=== PATIENT | female | born 1955 | race Caucasian/White ===

== ENCOUNTER 2019-12-06 11:05 | Outpatient (CLI) | payer BC ==
--- NOTE | 2019-12-26 14:34 | MMO ---
Bilateral MAMMO Bilat Screen [facility]. CLINICAL HISTORY: Patient is 64 years old and is seen for screening. The patient has no family history of breast cancer. The patient has no personal history of cancer. The patient has a history of right Stereotatic Biopsy more than 10 years ago - benign. VIEWS: The views performed were: bilateral craniocaudal with tomosynthesis and bilateral mediolateral oblique with tomosynthesis. FILMS COMPARED: The present examination has been compared to prior imaging studies performed at [facility] on 11/27/2015, 12/02/2016 and 12/13/2017. This study has been interpreted with the assistance of computer-aided detection. MAMMOGRAM FINDINGS: The breasts are heterogeneously dense, which could obscure a lesion on mammography. There are stable calcifications with grouped or clustered distribution and associated biopsy clip seen in the right breast. There are no suspicious masses, suspicious calcifications, or new areas of architectural distortion. IMPRESSION: THERE IS NO MAMMOGRAPHIC EVIDENCE OF MALIGNANCY. A ROUTINE FOLLOW-UP MAMMOGRAM IN 1 YEAR IS RECOMMENDED. THE RESULTS OF THIS EXAM WERE SENT TO THE PATIENT. ACR BI-RADS Category 2 - Benign finding MAMMOGRAPHY NOTE: 1. A negative mammogram report should not delay a biopsy if a dominant of clinically suspicious mass is present. 2. Approximately 10% to 15% of breast cancers are not detected by mammography. 3. Adenosis and dense breasts may obscure an underlying neoplasm. Reported by: NEVILLE ERIC MD Electonically Signed: [id number]
== END 2019-12-06 11:06 | disposition home or self-care (01) ==
LOC: BICMAMMO 11:05
PROVIDERS: ATTEND Obstetrics & Gynecology
DX: Z12.31 Encounter for screening mammogram for malignant neoplasm of breast (principal); Z91.89 Other specified personal risk factors, not elsewhere classified
CPT/HCPCS: 77063; 77067

== ENCOUNTER 2020-01-08 10:34 | Outpatient (CLI) | payer BC ==
--- NOTE | 2020-01-08 11:52 | BD ---
EXAM: Bone densitometry using DEXA HISTORY: 64 yo female. Screening for postmenopausal osteoporosis FINDINGS: L1--bone mineral density 0.843 g/sq cm; T score -1.3 ; Z score 0.1 L2--bone mineral density 0.82 g/sq cm; T score -1.8 ; Z score -0.1 L3--bone mineral density 0.816 g/sq cm; T score -2.4 ; Z score -0.7 L4--bone mineral density 0.825 g/sq cm; T score -2.1 ; Z score -0.4 Total L1-L4--bone mineral density 0.829 g/sq cm; T score -2.0 ; Z score -0.3 Left femoral neck--bone mineral density0.514; T score -3.0 ; Z score -1.6 Total proximal left femur--bone mineral density 0.758; T score -1.5 ; Z score -0.4 IMPRESSION: Osteoporosis
== END 2020-01-08 10:35 | disposition home or self-care (01) ==
LOC: BICMAMMO 10:34
PROVIDERS: ATTEND Obstetrics & Gynecology
DX: Z13.820 Encounter for screening for osteoporosis (principal); M81.0 Age-related osteoporosis without current pathological fracture
CPT/HCPCS: 77080

== ENCOUNTER 2021-03-03 13:57 | Outpatient (CLI) | payer BC | END 2021-03-03 13:58 | disposition home or self-care (01) | LOC: BICMAMMO 13:57 | PROVIDERS: ATTEND Obstetrics & Gynecology | DX: Z12.31 Encounter for screening mammogram for malignant neoplasm of breast (principal); Z91.89 Other specified personal risk factors, not elsewhere classified | CPT/HCPCS: 77063; 77067 ==

== ENCOUNTER 2021-08-06 13:26 | Outpatient (CLI) | payer MEDICARE, OTHER | END 2021-08-06 13:27 | disposition home or self-care (01) | LOC: BICRAD 13:26 | PROVIDERS: ATTEND Chiropractor | DX: M54.2 Cervicalgia (principal); M47.812 Spondylosis without myelopathy or radiculopathy, cervical region | CPT/HCPCS: 72040 ==

== ENCOUNTER 2021-08-26 15:41 | Emergency (ER) | payer MEDICARE, OTHER ==
[~2021-08-26 15:41] MED LIST: ISOVUE-370 76%-LOCM 1 ML ONE
[2021-08-26 16:32] LABS: #Lymphocytes 0.6 thou/uL (1.20-3.40); #Monocytes 0.5 thou/uL (0.11-0.59); #Neutrophils 5.8 thou/uL (1.40-6.50); %Basophils 0.3 % (0.0-1.0); %Eosinophils 0.1 % (0.0-10.0); %Lymphocytes 8.4 % (21.0-51.0); %Monocytes 6.6 % (0.0-10.0); %Neutrophils 84.6 % (42.0-75.0); Hemoglobin 12.6 g/dL (12.0-16.0); Mean Corpuscular HGB CONC 32.4 g/dL (32.0-36.0); Mean Corpuscular Hemoglobin 31.1 pg (27.0-31.0); Mean Corpuscular Volume 96.1 fL (78.0-98.0); Mean Platelet Volume 7.1 fL (7.4-10.4); Platelet Count 220 thou/uL (130-400); RBC Distribution Width 12.2 % (11.5-14.5); Red Blood Cell (RBC) Count 4.05 mill/uL (4.20-5.40); White Blood Cell (WBC) Count 6.9 thou/uL (4.8-10.8)
[2021-08-26 16:55] LABS: ALT (SGPT) 19 U/L (8-55); AST (SGOT) 22 U/L (5-34); Albumin 3.7 g/dL (3.4-4.8); Alkaline Phosphatase 38 U/L (40-110); Anion Gap 12 mmol/L (10-20); BUN (Urea Nitrogen) 16 mg/dL (9.8-20.1); Bilirubin, Total 0.4 mg/dL (0.2-1.2); Calc. Creatinine Clearance 0 mL/min (70-130); Calcium 8.3 mg/dL (7.8-10.44); Carbon Dioxide 27 mmol/L (23-31); Chloride 100 mmol/L (98-107); Globulin 2.3 g/dL (2.4-3.5); Glucose 122 mg/dL (80-115); Lipase 26 U/L (8-78); Potassium 4.2 mmol/L (3.5-5.1); Sodium 135 mmol/L (136-145)
[2021-08-26] MEDS ORDERED: Morphine 2 MG/ML VIAL ONE (17:22)
== END 2021-08-26 19:30 | disposition home or self-care (01) ==
LOC: ERS 15:41
DX: U07.1 COVID-19 (principal); R07.81 Pleurodynia
CPT/HCPCS: 71045; 71275; 80053; 83690; 84484; 85025; 93005; 96374; 99285; J2270; 36415; Q9966

== ENCOUNTER 2022-03-29 10:48 | Outpatient (CLI) | payer OTHER | END 2022-03-29 10:49 | disposition home or self-care (01) | LOC: BICCT 10:48 | PROVIDERS: ATTEND Internal Medicine | DX: E78.00 Pure hypercholesterolemia, unspecified (principal) | CPT/HCPCS: 75571 ==

== ENCOUNTER 2022-03-29 11:00 | Outpatient (CLI) | payer MEDICARE, OTHER | END 2022-03-29 11:01 | disposition home or self-care (01) | LOC: BICMAMMO 11:00 | PROVIDERS: ATTEND Internal Medicine | DX: Z12.31 Encounter for screening mammogram for malignant neoplasm of breast (principal); Z13.820 Encounter for screening for osteoporosis; M81.0 Age-related osteoporosis without current pathological fracture; Z91.89 Other specified personal risk factors, not elsewhere classified; Z78.0 Asymptomatic menopausal state | CPT/HCPCS: 77063; 77067; 77080 ==

== ENCOUNTER 2023-04-08 12:09 | Outpatient (CLI) | payer MEDICARE, OTHER | END 2023-04-08 12:10 | disposition home or self-care (01) | LOC: BICMAMMO 12:09 | PROVIDERS: ATTEND Internal Medicine | DX: Z12.31 Encounter for screening mammogram for malignant neoplasm of breast (principal); Z91.89 Other specified personal risk factors, not elsewhere classified; E78.00 Pure hypercholesterolemia, unspecified; M81.0 Age-related osteoporosis without current pathological fracture | CPT/HCPCS: 36415; 77063; 77067; 80053; 82306; 84443; 85025 ==